=== PATIENT | male | born 1995 | race Caucasian/White ===

== ENCOUNTER 2020-11-22 16:42 | Emergency (ER) | payer OTHER, SELFPAY ==
[2020-11-22 16:56] VITALS: BP 125/77; PULSE 71; RESP 16; TEMP 36.5; O2SAT 99
--- NOTE | 2020-11-22 17:19 | ED.ABDPAIN ---
HPI - Abdominal Pain General Chief Complaint: Abdominal Pain Stated Complaint: Abdominal Pain Time Seen by Provider: 11/22/20 17:19 Source: patient and RN notes reviewed Mode of arrival: ambulatory Limitations: no limitations History of Present Illness HPI narrative: 25-year-old male presents to the [facility] with complaints of abdominal pain for the last 4 to 5 weeks. Patient states that it feels sometimes like there is a golf ball stuck in his stomach and periumbilical/left lower quadrant area. States this morning he had some abdominal pain and Started to vomit. Has not been able to eat or drink anything since this am. States it was yellow frothy with black spots in stripes. Patient reports that he does have a primary care provider which she has follow-up appointment with shortly in [facility]. On exam patient has no pain at all. Does admit to to smoking marijuana Related Data Home Medications Medication Instructions Recorded Confirmed No Home Medications 11/22/20 11/22/20 Allergies Allergy/AdvReac Type Severity Reaction Status Date / Time No Known Allergies Allergy Verified 11/22/20 17:38 Review of Systems Review of Systems: All systems reviewed & are unremarkable except as noted in HPI and below Constitutional: Constitutional: Reports no additional constitutional complaints, Denies chills and Denies fever(s) Eyes: Eyes: Reports no additional eye complaints and Denies change in vision ENT: Reports system reviewed and no additional complaints, except as documented and Denies sore throat Cardiovascular: Cardiovascular: Reports no additional cardiovascular complaints and Denies chest pain Respiratory: Respiratory: Reports no additional respiratory complaints, Denies cough and Denies dyspnea Gastrointestinal: Gastrointestinal: Reports abdominal pain (4 to 5 weeks), Denies diarrhea, Reports nausea and Reports vomiting Genitourinary: Genitourinary: Reports no additional male genitourinary complaints Musculoskeletal: Musculoskeletal: Reports no additional musculoskeletal complaints and Denies back pain Integumentary/Breasts: Skin/Breast: Reports system reviewed and no additional complaints, except as docu Neurologic: Reports system reviewed and no additional complaints, except as documented Psychiatric: Psychiatric: Reports no additional psychiatric complaints Allergic/Immunologic: Allergic/Immunologic: Reports no additional allergic/immunologic complaints [facility] Social History Social History (Updated 11/22/20 @ 19:04 by Sara Johnston) Substance use type: marijuana Comments At the time of my signature, I reviewed and agree with the nursing past medical, surgical, social, and family history. There is no relevant family history pertinent to the patient complaint. Exam Const: General: healthy appearing, no acute distress and alert Nutritional Appearance: well nourished Orientation/consciousness: patient oriented x3 Limitations: no limitations HENMT: Head: normal to inspection Ears: external ears normal, TM's normal bilaterally and EAC's normal Eyes: Conjunctivae: conjunctivae normal Pupils: Equal, round and reactive pupils present Neck: Neck: normal visual inspection and no lymphadenopathy Chest: Chest palpation & inspection: normal inspection of the chest Resp: Effort & Inspection: normal respiratory effort and no use of accessory muscles Auscultation: clear to auscultation bilaterally, no rales, no rhonchi and no wheezes Cardio: Rate: regular rate Rhythm: regular rhythm GI: GI Palp: Yes Soft to palpation, No Tenderness to palpation present (GI), No Guarding due to palpation present (GI) and No Rebound tenderness present Auscultation: Hypoactive bowel sounds present Back/Spine/Pelvis: Back: no CVA tenderness Skin: General skin exam: normal color Rashes: no rashes Neuro: General: patient oriented x3, moves all extremities, no meningeal signs and no foc
--- NOTE | 2020-11-22 17:43 | PC.NURSE ---
Pt given bottle of water to po challenge. Pt reports two emesis after drinking water. Observed contents looks like undigested food. Pt denies abdominal pain at this time.
[2020-11-22] MEDS: ONDANSETRON HCL ODT 4 MG TABLET PO (18:10)
== END 2020-11-22 18:18 | disposition short-term general hospital (02) ==
PROVIDERS: Emergency Provider Nurse Practitioner
DX: R11.2 Nausea with vomiting, unspecified (principal)
CPT/HCPCS: 99203; A9270; G0463

== ENCOUNTER 2021-02-23 21:57 | Emergency (ER) | payer OTHER, SELFPAY ==
--- NOTE | ~2021-02-23 | XR_ITS ---
EXAMINATION: XR chest 1V portable EXAM DATE: 02/23/2021 22:29 INDICATION: cough, Fever 105,Abd Pain,N/D, X3 Days . TECHNIQUE: Portable AP frontal chest x-ray was obtained. There is no prior study for comparison. FINDINGS: The lungs are clear. There are no pleural effusions. The cardiomediastinal silhouette is within normal limits. There is no pneumothorax suspected. The bones and soft tissues are unremarkab le. IMPRESSION: Unremarkable chest x-ray exam. Reviewed, dictated and finalized at location G.
[2021-02-23 21:59] VITALS: BP 105/80; PULSE 99; RESP 18; TEMP 36.3; O2SAT 99
[2021-02-23 22:21] VITALS: BP 114/79; PULSE 92; RESP 19; TEMP 37.2; O2SAT 99
[2021-02-23] MEDS: SODIUM CHLORIDE 0.9% IV 1,000 ML 999 ML IV CONT (22:38)
[2021-02-23] MEDS: ONDANSETRON INJ 4 MG/2 ML VIAL IV PUSH (22:38)
[2021-02-23 22:56] LABS: Basophils Percent Auto 0.2 % (0.2-1.2); Eosinophils Percent Auto 0.1 % (0-4.4); Hematocrit 45.3 % (42.0-52.0); Hemoglobin 15.8 g/dL (14.0-18.0); Immature Granulocyte Absolute 0.06 K/mm3 (0.00-0.031); Immature Granulocyte Percent A 0.4 % (0-0.5); Lymphocytes Absolute Auto 0.41 K/mm3 (0.9-3.2); Lymphocytes Percent Auto 2.5 % (18.3-44.2); Mean Corpuscular HGB Conc 34.9 g/dl (32-36); Mean Corpuscular Hemoglobin 31.3 pg (26-34); Mean Corpuscular Volume 89.9 fl (80-100); Monocytes Absolute Auto 0.5 K/mm3 (0.1-0.6); Monocytes Percent Auto 3.2 % (2.6-8.5); Neutrophils Absolute Auto 15.6 K/mm3 (1.3-6.7); Neutrophils Percent Auto 93.6 % (45.5-73.1); Platelet Count Result 316 k/mm3 (150-375); Red Blood Count 5.04 M/mm3 (4.6-6.20); Red Cell Distribution Width 13.2 % (11.5-14.5); White Blood Count 16.6 K/mm3 (4.5-10.0)
[2021-02-23 22:59] LABS: Add Urine Microscopic? YES; Appearance Urine Clear (Clear); Bilirubin Urine Negative (Negative); Blood Urine Negative (Negative); Color Urine Yellow (Yellow); Glucose Urine UA Negative (Negative); Ketones Urine 2+ mg/dL (Negative); Leukocyte Esterase Ur Negative LEU/UL (Negative); Mucus Urine Rare /lpf; Nitrate Urine Negative (Negative); Protein Urine Negative (Negative); Urobilinogen Urine Negative mg/dL (<2.0); WBC Urine 0-3 /hpf
[2021-02-23 23:06] LABS: Alanine Aminotransferase 20 U/L (4-50); Alkaline Phosphatase 118 U/L (38-126); Anion Gap 11 mmol/L (8-16); Aspartate Amino Transferase 28 U/L (17-59); Bilirubin,Total 0.7 mg/dL (0.2-1.3); Blood Urea Nitrogen 14 mg/dL (9-20); Calcium 9.3 mg/dL (8.4-10.2); Carbon Dioxide 24 mmol/L (22-30); Chloride 103 mmol/L (98-107); Estimated CRCL calculation 124 ml/min; Estimated Glomerular Filt Rate > 60; Glucose 102 mg/dL (65-110); Lipase 67 U/L (23-300); Potassium 3.8 mmol/L (3.4-5.0); Sodium 138 mmol/L (137-145)
--- NOTE | 2021-02-23 23:15 | ED.ABDPAIN ---
HPI - Abdominal Pain General Chief Complaint: Abdominal Pain Stated Complaint: diarrhea, cough Time Seen by Provider: 02/23/21 22:07 Source: patient History of Present Illness HPI narrative: Patient presents with nausea vomiting diarrhea and abdominal pain. Patient also reports cough and shortness of breath. Patient ana is been feeling this for the past few days has been getting worse around to come to the ER for evaluation. Reports not been able to eat or drink anything else reports he needs a Covid test before work will let him return. He reports diffuse abdominal pain described as cramping, constant, alleviated with emesis, no radiation. Denies any urinary symptoms reports 105 at home. Related Data Allergies Allergy/AdvReac Type Severity Reaction Status Date / Time No Known Allergies Allergy Verified 02/23/21 22:26 Review of Systems Review of Systems: CONSTITUTIONAL: Denies fever, chills, or sweats. EYES: Denies visual changes, redness, or discharge. ENT: Denies rhinorrhea, congestion, sore throat, or otalgia. CARDIOVASCULAR: Denies chest pain, palpitations, or edema. RESPIRATORY: Reports cough and shortness of breath GASTROINTESTINAL: Reports abdominal pain nausea vomiting and diarrhea GENITOURINARY: Denies dysuria or hematuria. SKIN: Denies rash or itching. MUSCULOSKELETAL: Denies back pain, joint pain, or myalgia. NEUROLOGIC: Denies headache, numbness, dizziness, or weakness. PSYCHIATRIC: Denies anxiety or depression. All systems reviewed & are unremarkable except as noted in HPI and below [facility] Social History Social History Substance use type: marijuana Exam Narrative: GENERAL: Well-appearing, well-nourished, and in no acute distress. HEAD: Normocephalic, atraumatic. EYES: PERRLA and EOMI. ENT: Nares clear, no rhinorrhea or epistaxis. Mucous membranes moist. NECK: Supple. No masses. No JVD CHEST: Clear to auscultation. No respiratory distress. No wheezes rales or rhonchi HEART: Regular rate and rhythm. No murmur heard. Normal peripheral pulses. ABDOMEN: Minimal diffuse pain with deep palpation soft, nondistended EXTREMITIES: Normal range of motion. No edema. SKIN: Warm, dry, no rash. NEURO: No focal deficits. Alert and oriented x3. PSYCH: Normal mood and affect. Course Reevaluation(s) Reevaluation #1: Patient resting comfortably reports feeling improved results and plan reviewed with patient. Patient comfortable outpatient plan. Date: 02/23/21 Time: 23:32 Vital Signs Vital signs: Vital Signs Temperature 36.3 C L 02/23/21 21:59 Pulse Rate 99 02/23/21 21:59 Respiratory Rate 18 02/23/21 21:59 Blood Pressure 105/80 02/23/21 21:59 Pulse Oximetry 99 02/23/21 21:59 Temperature 37.2 C 02/23/21 22:21 Pulse Rate 92 02/23/21 22:21 Respiratory Rate 19 02/23/21 22:21 Blood Pressure 114/79 02/23/21 22:21 Pulse Oximetry 99 02/23/21 22:21 MDM - Abdominal Pain MDM Narrative Medical decision making narrative: H&P as above, vss, pt looks clinically well, exam with nonacute abdomen, labs with leukocytosis otherwise clinically unremarkable, img unremarkable, additional labs/img considered, symptomatic relief available as needed, on reevaluation pt continues to looks clinically well. Suspect viral process, dns severe sepsis, severe dehydration, appendicitis, pancreatitis, bowel obstruction, perforation. plan to tx/monitor as op w/ pcm f/u findings/plan discussed with pt, pt agree/comfortable with plan, return precautions given Lab Data Attestation: I reviewed the patient's lab results. Result diagrams: 02/23/21 22:43 02/23/21 22:43 Labs: Lab Results 02/23/21 02/23/21 02/23/21 Range/Units 22:43 22:43 22:43 WBC 16.6 H (4.5-10.0) K/mm3 RBC 5.04 (4.6-6.20) M/mm3 Hgb 15.8 (14.0-18.0) g/dL Hct 45.3 (42.0-52.0) % MCV 89.9 (80-100) fl MCH 31.3 (26-34) pg MCHC 3
[2021-02-23 23:20] LABS: Specific Grav Ur 1.031 (1.001-1.035)
[2021-02-24 00:12] VITALS: BP 110/54; PULSE 74; RESP 12; O2SAT 97
[2021-02-24 17:41] LABS: SARS-CoV-2 RNA PCR Positive
== END 2021-02-24 00:14 | disposition home or self-care (01) ==
PROVIDERS: Emergency Provider Emergency Medicine
DX: U07.1 COVID-19 (principal); R05.9 Cough, unspecified; R06.02 Shortness of breath; R11.2 Nausea with vomiting, unspecified; R19.7 Diarrhea, unspecified; R10.84 Generalized abdominal pain
CPT/HCPCS: 36415; 71045; 80053; 81001; 83690; 85025; 96365; 96375; 99284; C9803; J0131; J2405; J7030; U0003; U0005

== ENCOUNTER 2022-11-25 23:50 | Emergency (ER) | payer SELFPAY ==
[2022-11-25 23:53] VITALS: BP 147/89; PULSE 54; RESP 19; TEMP 35.6; O2SAT 100
--- NOTE | 2022-11-26 00:21 | ED.GENADULT ---
HPI - General Adult General Chief complaint: Dental/Oral Stated complaint: Right sided dental pain Time Seen by Provider: 11/26/22 00:02 Source: patient Mode of arrival: ambulatory Limitations: no limitations History of Present Illness HPI narrative: This is a 27-year-old male who presents to the ED with chief complaint of right-sided dental pain onset 1 week ago and worse in the past few hours. Patient states he feels the pain may be coming from the right lower molars. Denies any fevers or chills. Denies trouble swallowing. Related Data Allergies Allergy/AdvReac Type Severity Reaction Status Date / Time No Known Allergies Allergy Verified 02/23/21 22:26 [facility] Social History Social History Substance use type: marijuana Exam Narrative: GENERAL: Well-appearing, well-nourished, and in no acute distress. HEAD: Normocephalic, atraumatic. EYES: PERRLA and EOMI. ENT: Nares clear, no rhinorrhea or epistaxis. Mucous membranes moist. Oropharynx without tonsillar hypertrophy exudate or other lesions. Caries noted throughout mouth Impacted right lower molar with surrounding erythema. No identifiable abscess. Right upper molar with dental caries as well. Floor the mouth is intact. No trismus or drooling. Uvula midline. No swelling throughout the jaw or face. NECK: Supple. No adenopathy or masses. CHEST: No respiratory distress. Clear to auscultation. No wheezes rales or rhonchi HEART: Regular rate and rhythm. No murmur heard. Normal peripheral pulses. ABDOMEN: Soft, nontender, nondistended, normal active bowel sounds. MSK: Normal range of motion. No edema. SKIN: Warm, dry, no rash. NEURO: Alert and oriented x3. No focal deficits. PSYCH: Normal mood and affect. Course Vital Signs Vital signs: Vital Signs Temperature 96.1 F L 11/25/22 23:53 Pulse Rate 54 L 11/25/22 23:53 Respiratory Rate 19 11/25/22 23:53 Blood Pressure 147/89 H 11/25/22 23:53 Pulse Oximetry 100 11/25/22 23:53 Oxygen Delivery Room Air 11/25/22 23:53 Temperature 96.1 F L 11/25/22 23:53 Pulse Rate 54 L 11/25/22 23:53 Respiratory Rate 19 11/25/22 23:53 Blood Pressure 147/89 H 11/25/22 23:53 Pulse Oximetry 100 11/25/22 23:53 Oxygen Delivery Room Air 11/25/22 23:53 Medical Decision Making MDM Narrative Medical decision making narrative: This is a 27-year-old male who presents to the ED with chief complaint of right-sided dental pain ongoing for the past week and worse today. Vitals are normal. Exam reveals impacted molar on the right lower side. Dental caries throughout the oral cavity. Patient will be given pain control here. Prescription for Toradol written. Prescription for Augmentin as well. Patient is seeking dental referral. Reference sheet was given. He is understanding and agreeable with plan for discharge and follow-up with the dentist. Supportive measures for home discussed and return precautions given. Vital Signs Vital Signs: Vital Signs Temperature 96.1 F L 11/25/22 23:53 Pulse Rate 54 L 11/25/22 23:53 Respiratory Rate 19 11/25/22 23:53 Blood Pressure 147/89 H 11/25/22 23:53 Pulse Oximetry 100 11/25/22 23:53 Oxygen Delivery Room Air 11/25/22 23:53 Temperature 96.1 F L 11/25/22 23:53 Pulse Rate 54 L 11/25/22 23:53 Respiratory Rate 11/25/22 23:53 Blood Pressure 147/89 H 11/25/22 23:53 Pulse Oximetry 100 11/25/22 23:53 Oxygen Delivery Room Air 11/25/22 23:53 Discharge Plan Discharge Clinical Impression: Dental caries, Impacted molar Patient Disposition: Home, Self-Care Condition: Stable Instructions: Antibiotic Form Additional Instructions: Please take antibiotics as prescribed. You can also use Toradol for anti-inflammatory purposes. Do not take ibuprofen or other NSAIDs with Toradol.. Please follow-up with the dental reference sheet provided. If you have any n
[2022-11-26] MEDS: HYDROcodone/acetaminophen (*CRX) 5-325 MG TABLET 1 TAB PO (00:46)
[2022-11-26] MEDS: AMOXICILLIN/CLAVULANATE K 875-125 MG TAB 1 TABLET PO (00:46)
[2022-11-26] MEDS: KETOROLAC 30 MG/ML VIAL (*BKC) IM (00:47)
== END 2022-11-26 00:50 | disposition home or self-care (01) ==
PROVIDERS: Emergency Provider Physician Assistant
DX: K02.9 Dental caries, unspecified (principal); K01.1 Impacted teeth
CPT/HCPCS: 96372; 99283; A9270; J1885